=== PATIENT | female | born 1970 | race Two or more races ===

== ENCOUNTER 2023-02-10 09:10 | Day surgery (SDC) | payer OTHER ==
[~2023-02-10] VITALS: Ht 152.4 cm; Wt 86.2 kg
[2023-02-10] MEDS ORDERED: fentaNYL citrate 0.05 MG/ML VIAL ONE (10:24)
[2023-02-10] MEDS ORDERED: MIDAZOLAM 2 MG/2 ML VIAL ONE (10:24)
[2023-02-10] MEDS ORDERED: LIDOCAINE 2% 100 MG/5 ML UJET TP ONE (10:24)
[2023-02-10] MEDS ORDERED: MIDAZOLAM 5 MG/5 ML VIAL ONE (10:36)
== END 2023-02-10 11:48 | disposition home or self-care (01) ==
LOC: MDS 09:10 → MMU 09:10 → MDS 11:48
PROVIDERS: ATTEND Internal Medicine Gastroenterology
DX: Z12.11 Encounter for screening for malignant neoplasm of colon (principal); R10.13 Epigastric pain; K29.70 Gastritis, unspecified, without bleeding; K21.00 Gastro-esophageal reflux disease with esophagitis, without bleeding; Z79.899 Other long term (current) drug therapy
CPT/HCPCS: 36415; 43239; 45378; 86677; J2250; J3010